=== PATIENT | female | born 1955 | race Caucasian/White ===

== ENCOUNTER 2018-06-23 11:36 | Emergency (ER) | payer MEDICAID, OTHER ==
[2018-06-23 11:36] VITALS: BMI 42.4
[2018-06-23 11:44] VITALS: RESP 18
--- NOTE | 2018-06-23 12:04 | C.PDOC ---
History Of Present Illness 63 y/o female with history of Arthritis, DM and Asthma presents to ED with c/o worsening knee pain bilaterally for 3 days. Patient states she has chronic knee pain and was being treated by Dr. Nguyen. Patient states she has no medical insurance now and cannot be seen by Dr. Nguyen. Patient denies numbness, trauma , change in sensation, increased swelling or redness, chest pain, sob or any other complaints at this time. Time Seen by Provider: 06/23/18 11:52 Chief Complaint (Nursing): Lower Extremity Problem/Injury History Per: Patient, Grant Manager (RHONDA Ibanez) History/Exam Limitations: no limitations Onset/Duration Of Symptoms: Days Current Symptoms Are (Timing): Still Present Past Medical History Reviewed: Historical Data, Nursing Documentation, Vital Signs Vital Signs: Last Vital Signs Temp 98.7 F 06/23/18 13:19 Pulse 58 L 06/23/18 13:19 Resp 18 06/23/18 13:19 BP 127/70 06/23/18 13:19 Pulse Ox 100 06/23/18 13:19 - Medical History PMH: Arthritis, Asthma Surgical History: No Surg Hx Family History: States: No Known Family Hx - Social History Hx Alcohol Use: No Hx Substance Use: No Review Of Systems Except As Marked, All Systems Reviewed And Found Negative. Constitutional: Negative for: Fever, Chills Musculoskeletal: Positive for: Leg Pain Skin: Negative for: Rash, Bruising Neurological: Negative for: Weakness, Numbness Physical Exam - Physical Exam Appears: Non-toxic, No Acute Distress Skin: Warm, Dry, No Rash Head: Atraumatic, Normacephalic Eye(s): bilateral: Normal Inspection, EOMI Nose: Normal Oral Mucosa: Moist Neck: Normal ROM, Supple Chest: Symmetrical Cardiovascular: Rhythm Regular Respiratory: Normal Breath Sounds, No Rales, No Rhonchi, No Wheezing Back: No CVA Tenderness, No Vertebral Tenderness Extremity: Normal ROM, Tenderness (diffuse to bilateral knees), Calf Tenderness (? calf tenderness), Capillary Refill (<2 seconds), No Deformity, Swelling ( diffuse to bilateral knees) Extremity: Bilateral: Atraumatic, Normal Color And Temperature, Normal ROM Pulses: Left Dorsalis Pedis: Normal, Right Dorsalis Pedis: Normal Neurological/Psych: Oriented x3, Normal Speech, Normal Motor, Normal Sensation ED Course And Treatment O2 Sat by Pulse Oximetry: 98 (RA) Pulse Ox Interpretation: Normal Progress Note: Duplex B/L: negative. Naproxen ordered. On reassessment, patient is resting comfortably, and is in no acute distress. Discussed with pt no signs of infection, no trauma, no DVT. Discussed vascular insufficiency and instructed follow up with physician/clinic in 1-2 days for further evaluation. Disposition - Disposition Referrals: [facility] [Outside] Daniel Nguyen MD [Staff Provider] - Disposition: HOME/ ROUTINE Disposition Time: 13:08 Condition: STABLE Additional Instructions: Vaya a alcala mdico o la clnica en 2-5 [place]ak sin falta, para mas evaluacin. [place] los medicamentos becki indicado. Volver a la k[place] de emergencia en cualquier momento si los sntomas persisten o empeoran. Instructions: Osteoarthritis (DC) Forms: [employer] (Icelandic) Print Language: AUSTRIAN - Clinical Impression Clinical Impression: Osteoarthritis, Vascular insufficiency - PA / CONCRETE BLOCK MAKER / Resident Statement MD/DO has reviewed & agrees with the documentation as recorded. - Scribe Statement The provider has reviewed the documentation as recorded by the Scribannelise Laurent All medical record entries made by the Scribe were at my direction and personally dictated by me. I have reviewed the chart and agree that the record accurately reflects my personal performance of the history, physical exam, medical decision making, and the department course for this patient. I have also personally directed, reviewed, and agree with the discharge instructions and disposition.
[2018-06-23 13:22] VITALS: BP 127/70; PULSE 58; TEMP 98.7
--- NOTE | 2018-06-23 14:13 | VASCLAB ---
Date of service: 06/23/2018 PROCEDURE: Lower Extremity Venous Duplex Exam. HISTORY: Pain, swelling PRIORS: None. TECHNIQUE: Bilateral common femoral, femoral, popliteal and posterior tibial, peroneal and great saphenous veins were evaluated. Flow was assessed with color Doppler, compressibility, assessment of phasic flow and augmentation response. Report prepared by ESTHER Quinonez FINDINGS: RIGHT: 1. Common Femoral Vein: 1.1. Compressibility - Fully compressible: Thrombus - None : Flow - Phasic: Augmentation -Normal: Reflux - None. 2. Femoral Vein: 2.1. Compressibility - Fully compressible: Thrombus - None : Flow - Phasic: Augmentation -Normal: Reflux - None. 3. Popliteal Vein: 3.1. Compressibility - Fully compressible: Thrombus - None : Flow - Phasic: Augmentation -Normal: Reflux - None. 4. Posterior Tibial Vein: 4.1. Compressibility - Fully compressible: Thrombus - None: Flow - Phasic: Augmentation -Normal: Reflux - None. 5. Peroneal Vein: 5.1. Compressibility - Fully compressible: Thrombus - None: Flow - Phasic: Augmentation -Normal: Reflux - None. 6. Great Saphenous Vein: 6.1. Compressibility - Fully compressible: Thrombus - None: Flow - Phasic: Augmentation - Normal: Reflux - Moderate 3.31s LEFT: 1. Common Femoral Vein: 1.1. Compressibility - Fully compressible: Thrombus - None: Flow - Phasic: Augmentation -Normal: Reflux - None. 2. Femoral Vein: 2.1. Compressibility - Fully compressible: Thrombus - None: Flow - Phasic: Augmentation -Normal: Reflux - None. 3. Popliteal Vein: 3.1. Compressibility - Fully compressible: Thrombus - None : Flow - Phasic: Augmentation -Normal: Reflux - None. 4. Posterior Tibial Vein: 4.1. Compressibility - Fully compressible: Thrombus - None: Flow - Phasic: Augmentation -Normal: Reflux - None. 5. Peroneal Vein: 5.1. Compressibility - Fully compressible: Thrombus - None: Flow - Phasic: Augmentation -Normal: Reflux - None. 6. Great Saphenous Vein: 6.1. Compressibility - Fully compressible: Thrombus - None: Flow - Phasic: Augmentation - Normal: Reflux - None. OTHER FINDINGS: Right: None significant. Left: None significant. IMPRESSION: Right: No evidence of deep or superficial vein thrombosis of the right lower extremity. Valvular incompetence noted of the right great saphenous vein. Left: No evidence of deep or superficial vein thrombosis of the left lower extremity. Normal valve function noted of the left side.
[2018-06-23 20:35] VITALS: O2SAT 98
== END 2018-06-23 13:22 | disposition home or self-care (01) ==
LOC: C.ER 11:36
DX: M19.90 Unspecified osteoarthritis, unspecified site (principal); I99.8 Other disorder of circulatory system
CPT/HCPCS: 93970; 96372; 99284; J1885